=== PATIENT | female | born 2000 | race Caucasian/White ===

== ENCOUNTER 2019-02-23 00:09 | Emergency (ER) | payer BC, OTHER ==
--- NOTE | 2019-02-23 00:54 | EDM.PDOC ---
ED HPI GENERAL MEDICAL PROBLEM - General Chief Complaint: Lower Extremity Injury/Pain Stated Complaint: TOE INJURY Time Seen by Provider: 02/23/19 00:32 Source of Information: Reports: Patient, RN Notes Reviewed, Significant Other ( Boyfriend) History Limitations: Reports: No Limitations - History of Present Illness INITIAL COMMENTS - FREE TEXT/NARRATIVE: The patient states that she has been drinking a lot tonight, and apparently stubbed her left fifth toe around midnight, while at a bar. She presents with pain and mild swelling to her left fifth toe. She is otherwise uninjured. No prior left fifth toe injury. The patient's PCP is Khushi Green. - Related Data Allergies Allergy/AdvReac Type Severity Reaction Status Date / Time No Known Allergies Allergy Verified 02/23/19 00:18 Home Meds: Home Meds Amitriptyline [Elavil] 0 mg PO DAILY 02/23/19 [History] Escitalopram [Lexapro] 20 mg PO DAILY 02/23/19 [History] medroxyPROGESTERone [Depo-Provera Contraceptive] 0 mg IM ASDIRECTED 02/23/19 [ History] Past Medical History Psychiatric History: Reports: Anxiety Social & Family History - Tobacco Use Smoking Status *Q: Current Every Day Smoker Years of Tobacco use: 4 Packs/Tins Daily: 0.5 - Alcohol Use Days Per Week of Alcohol Use: 5 Number of Drinks Per Day: 7 Total Drinks Per Week: 35 - Recreational Drug Use Recreational Drug Use: Yes Drug Use in Last 12 Months: Yes Recreational Drug Type: Reports: Marijuana/Hashish (smokes daily) - Living Situation & Occupation Living situation: Reports: Single, with Significant Other (Boyfriend) Occupation: Student ([employer]) Review of Systems - Review of Systems Review Of Systems: ROS reveals no pertinent complaints other than HPI. ED EXAM, GENERAL - Physical Exam Exam: See Below Exam Limited By: No Limitations General Appearance: Alert, WD/WN, Mild Distress (tearful), Other (Strong smell of alcohol) Extremities: Other (The left fifth toe is mildly swollen, when compared to the right fifth toe, however, there is no other visible abnormality, such as abrasion, ecchymosis, or erythema. The toe is tender to palpation. Neurovascular status of the left foot is intact.) Course - Vital Signs Last Recorded V/S: Last Vital Signs Temp 36.9 C 02/23/19 00:14 Pulse 135 H 02/23/19 00:14 Resp 16 02/23/19 00:14 BP 144/102 H 02/23/19 00:14 Pulse Ox 95 02/23/19 00:14 - Re-Assessments/Exams Free Text/Narrative Re-Assessment/Exam: 02/23/19 00:52 3-view radiographs of the left 5th toe demonstrate a minimally displaced, dorsally angulated midshaft fracture of the proximal phalanx. Formal read per the Radiologist pending. We will justin tape the toe. I'm going to recommend ice and elevation for couple of days, ibuprofen, and supportive shoes. Departure - Departure Time of Disposition: 01:03 Disposition: Home, Self-Care 01 Condition: Good Clinical Impression: Closed fracture of phalanx of left fifth toe - Discharge Information *PRESCRIPTION DRUG MONITORING PROGRAM REVIEWED*: Not Applicable *COPY OF PRESCRIPTION DRUG MONITORING REPORT IN PATIENT VITA: Not Applicable Instructions: Toe Fracture, [id number] Referrals: Khushi Green NP [Primary Care Provider] - Woodrow Tellez MD [Physician] - Forms: ED Department Discharge Additional Instructions: You were seen in the emergency room after stubbing your left pinky toe. Workup in the ER included x-rays of your toe, which confirmed that you have fractured the proximal phalanx. Your pinky toe was justin taped to the fourth toe. You will need to replace the justin tape every time you bathe. Ice and elevate your left foot as much as possible for the next 48 hours, to help minimize swelling. Wear supportive shoes when walking around. Take [id number] ibuprofen, 2-3 tablets (400-600 mg) every 8 hours, with food, as needed for discomfort. The toe should heal on its own without complications, however, if it does not seem to be healing properly, you may follow-up with the Orthopedic Surgeon Dr. Woodrow Tellez. If any other problems, please do not hesitate to return to the ER.
--- NOTE | 2019-02-23 12:37 | CR ---
Left fifth toe: Three views centered to the left fifth toe were obtained. Comparison: No prior toe study. Slightly angulated fracture is noted within the mid shaft of the proximal phalanx of the left fifth toe. Soft tissue swelling is noted. No additional fracture or other bony abnormality is identified. Impression: 1. Slightly angulated left fifth toe fracture as noted above. Diagnostic code #3
== END 2019-02-23 01:15 | disposition home or self-care (01) ==
LOC: JD.ED 00:09
DX: S92.512A Displaced fracture of proximal phalanx of left lesser toe(s), initial encounter for closed fracture (principal); F17.210 Nicotine dependence, cigarettes, uncomplicated; Z79.899 Other long term (current) drug therapy; X58.XXXA Exposure to other specified factors, initial encounter
CPT/HCPCS: 73660-26-T4; 73660-T4; 99283; 99283-25